=== PATIENT | male | born 1980 | race Caucasian/White ===

== ENCOUNTER 2020-12-16 23:02 | Emergency (ER) | payer OTHER, SELFPAY ==
[2020-12-16 23:08] VITALS: BP 178/103; PULSE 84; RESP 16; O2SAT 98; BMI 26.4
--- NOTE | 2020-12-16 23:13 | ED.GENADULT ---
HPI - General Adult General Chief complaint: General Medical Stated complaint: Swallowed pine-rosendo Time Seen by Provider: 12/16/20 23:13 Source: patient Mode of arrival: ambulatory Limitations: no limitations History of Present Illness HPI narrative: Patient accidentally ingested 1 sip of pine rosendo from a mislabeled bottle immediately patient vomited 3 times complaining of mild sore throat denies any shortness of breath no significant abdominal pain Related Data Allergies Allergy/AdvReac Type Severity Reaction Status Date / Time No Known Allergies Allergy Unverified 04/04/20 16:40 Review of Systems Review of Systems: Yes all other systems are reviewed and are negative Physical Exam Vital Signs: Vital Signs: Last Vital Signs Pulse 84 12/16/20 23:08 Resp 16 12/16/20 23:08 BP 178/103 H 12/16/20 23:08 Pulse Ox 98 12/16/20 23:08 Body Mass Index 26.4 Appearance: Alert. Oriented X3. No acute distress. Eyes: PERRLA, No Nystagmus ENT: Pharynx normal. Oral Mucosa moist Neck: Normal inspection. Neck supple. CVS: Normal heart rate and rhythm. Pulses normal. Respiratory: No respiratory distress. Equal air entry bilateral, no wheezing/rales/rhonchi Abdomen: Soft and nontender. Bowel sounds are present, no mass palpable, no CVA tenderness Skin: Skin warm and dry. Normal skin color. Normal skin turgor. Extremities: No lower extremity edema. No calf tenderness Neuro: Oriented X 3. No motor deficit. No sensory deficit Medical Decision Making MDM Narrative Medical decision making narrative: Patient with non toxic chemical ingestion will give Maalox for symptomatic treatment for the acute gastritis discharge Discharge Plan Discharge Clinical Impression: Ingestion of nontoxic substance Qualifiers: Encounter type: initial encounter Injury intent: accidental or unintentional Qualified Code(s): T65.91XA - Toxic effect of unspecified substance, accidental (unintentional), initial encounter Patient Disposition: Home, Self-Care Instructions: Gastritis (ED) Additional Instructions: You have gastritis from nontoxic chemical ingestion. Drink plenty of fluids Take Tums or Mylanta for gastritis
[2020-12-16] MEDS: Magnesium Hydrox/Alum Hydrox 30 ML ORAL.SUSP PO (23:23)
== END 2020-12-16 23:45 | disposition home or self-care (01) ==
LOC: HO.ED 23:37
PROVIDERS: Emergency Provider Internal Medicine
DX: T65.891A Toxic effect of other specified substances, accidental (unintentional), initial encounter (principal); K29.00 Acute gastritis without bleeding; Y92.019 Unspecified place in single-family (private) house as the place of occurrence of the external cause
CPT/HCPCS: 99283; 99284

== ENCOUNTER 2022-03-21 21:00 | Emergency (ER) | payer OTHER, SELFPAY ==
--- NOTE | ~2022-03-21 | XR_ITS ---
EXAMINATION: XR KNEE, LEFT CLINICAL INFORMATION: Pain. COMPARISON: None TECHNIQUE: Four views of the left knee. FINDINGS: Bones and soft tissues are normal. No fracture or joint effusion. Alignment is anatomic. Joint spaces are well maintained. No abnormal soft tissue calcification. XR/XR knee LT 3V IMPRESSION: Normal left knee.
[2022-03-21 22:53] VITALS: BP 159/118; PULSE 72; RESP 18; TEMP 36.8; O2SAT 96; BMI 27.4
--- NOTE | 2022-03-22 01:48 | ED.EXTPRO ---
HPI - Extremity Problem General Chief complaint: Extremity Problem Stated complaint: L knee pain when it bends. approx 1 week Time Seen by Provider: 03/22/22 01:35 Source: patient Mode of arrival: ambulatory Limitations: no limitations History of Present Illness HPI Narrative: 41-year-old male who presents emergency department for evaluation of left knee pain. The patient does not recall any specific injury to his right knee. 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 He states that over the past week and a notice that if he bends and flex his right knee has pain along the medial aspect. He states the pain is a sharp pain which is worse if he presses on the medial aspect of his knee. He states he has had no difficulty standing or walking. He has no difficulty pivoting. He denied any symptoms such as fever, chills, fatigue. He has not noticed any redness or swelling of his knee. MD Complaint: extremity pain Onset (ago): week(s) (1) Pain Consistency: constant Location: left Severity scale (1-10): 3 Quality: aching Radiation: none Relieving factors: nothing Exacerbating factors: other ( Flexing left knee) Related Data Allergies Allergy/AdvReac Type Severity Reaction Status Date / Time No Known Allergies Allergy Unverified 04/04/20 16:40 Review of Systems Review of Systems: Yes all other systems are reviewed and are negative [facility] Past Medical History [facility] Narrative: past medical history: None past surgical history: None. Social history: He denies tobacco, alcohol and drug use. 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 Social History Social History Advance Directives: No Advance Directives Information Provided: No Physical Exam Vital Signs: Vital Signs: Last Vital Signs Temp 98.2 F 03/21/22 22:53 Pulse 72 03/21/22 22:53 Resp 18 03/21/22 22:53 BP 159/118 H 03/21/22 22:53 Pulse Ox 96 03/21/22 22:53 O2 Del Method 03/21/22 22:53 BMI result Body Mass Index 27.4 Const: Other: Very pleasant and cooperative male patient, he does not appear to be in distress, answers all questions appropriately HEENT: Head: Yes normal to inspection Extrem: Other: the patient's knees there appear to be symmetric, the patient has pain with flexion of the left knee and pain with palpation over the medial collateral ligament and over the medial meniscus area. There is no joint effusion. The patient has no increased pain with medial lateral flexion, there is negative anterior-posterior drawer sign. 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 Patient had no systemic symptoms. Patient's left knee examination revealed no joint effusion, no erythema. He does have pain with flexion of the left kne and pain with palpation of the left medial collateral ligament as well as over the a left meniscal area. X-rays of the left knee revealed no acute findings. The patient's presentation is consistent with left knee sprain I did discuss this with him. He was advised to take Tylenol ibuprofen for pain. He was given an ice pack and Rinku wrap as well. He was discharged with printed and verbal instructions. Discharge Plan Discharge Clinical Impression: Left knee sprain Patient Disposition: Home, Self-Care Instructions: Knee Sprain (ED) Additional Instructions: Your x-ray gurney was normal, there is no arthritis or bone abnormality noted. Your exam is consistent with a sprain of the left knee medial collateral ligament or injury to the medial meniscus. Apply ice for 15 minutes 4 times a day for the next 2-3 days and that should help reduce the pain. Take ibuprofen 200 mg pills, 3 pills every 6 hours as needed for pain. Take Tylenol (acetaminophen) 500 mg pills, 2 pills every 4 to 6 hours as needed for pain. Follow-up with your doctor in 2 days. Please return to the emergency department if your symptoms get worse or if you develop any symptoms that are concerning to you.
[2022-03-22 01:54] VITALS: BP 154/70; PULSE 68; RESP 16; TEMP 36.1; O2SAT 98
--- NOTE | 2022-03-22 02:24 | PC.NURSE ---
assumed care of pt at 0224 for discharge
== END 2022-03-22 02:28 | disposition home or self-care (01) ==
PROVIDERS: Emergency Provider Emergency Medicine Emergency Medical Services
DX: S83.92XA Sprain of unspecified site of left knee, initial encounter (principal); X58.XXXA Exposure to other specified factors, initial encounter; Y93.9 Activity, unspecified; Y92.9 Unspecified place or not applicable; Y99.9 Unspecified external cause status
CPT/HCPCS: 73562; 99283

== ENCOUNTER → 2024-11-20 12:41 | Outpatient (BNVA) | payer OTHER, SELFPAY | PROVIDERS: Visit Provider Physician Assistant Medical | DX: S50.872A Other superficial bite of left forearm, initial encounter (principal); W50.3XXA Accidental bite by another person, initial encounter; Z23 Encounter for immunization; Z02.79 Encounter for issue of other medical certificate | CPT/HCPCS: 90715; 99202 ==

== ENCOUNTER 2025-03-12 10:53 | Emergency (ER) | payer SELFPAY ==
--- NOTE | ~2025-03-12 | XR_ITS ---
EXAMINATION: XR CHEST CLINICAL INFORMATION: HTN COMPARISON: None available. TECHNIQUE: 2 views of the chest were obtained. FINDINGS: The cardiac, hilar, and mediastinal contours are normal. The lungs are clear bilaterally. There is no pneumothorax or pleural effusion. There is no focal osseous or soft tissue abnormality. XR/XR chest 2V IMPRESSION: Normal chest. Electronically signed by: Sandeep Becker MD 03/12/2025 12:10 PM EDT
[2025-03-12 11:00] VITALS: BP 191/100; PULSE 76; RESP 19; TEMP 36.7; O2SAT 97; BMI 27.4
--- NOTE | 2025-03-12 11:00 | ED.GENADULT ---
HPI - General Adult General Chief complaint: General Medical Stated complaint: elev BP sent by [facility] Time Seen by Provider: 03/12/25 11:10 Source: patient Mode of arrival: ambulatory Limitations: no limitations History of Present Illness ED Provider: [facility] narrative: Patient went to see his dentist for a root canal was sent here because the blood pressure was 177/100, patient states that he was nervous, had sexual intercourse with his , did not eat or drink and so that can explain his blood pressure however he also endorsed that he has not seen a physician in 2 years, he does not drink does not smoke denies drug use, he has had no other symptoms no headaches no vision changes no weakness in upper or lower extremities no abdominal pain no chest pain, no difficulty urinating. Related Data Previous Rx's ?Medication ?Instructions ?Recorded hydrochlorothiazide 12.5 mg capsule 12.5 mg PO DAILY #60 caps 03/12/25 Allergies Allergy/AdvReac Type Severity Reaction Status Date / Time No Known Allergies Allergy Verified 03/12/25 11:02 Review of Systems Constitutional: Constitutional: Reports as per [facility] Social History Social History Smoked in Last 30 Days: No Use of substances other than those prescribed or required for medical reasons: No Advance Directives: No Advance Directives Information Provided: Yes Do you have a plan to hurt others: No Plan Physical Exam ED Vital Signs: Vital Signs - 24 hr 03/12/25 11:00 03/12/25 11:42 Temperature 98.1 F 97.9 F Pulse Rate 76 85 Respiratory Rate 19 14 Blood Pressure 191/100 H 173/107 H Pulse Oximetry 97 97 Oxygen Delivery Method Room Air Room Air BMI result Body Mass Index 27.4 Const Other: Gen: ?Overall well-appearing patient CV: RRR, no obvious murmurs appreciated Resp: ?No wheezing rales rhonchi no stridor moving air well Abd: ?Bowel sounds are present, no tenderness no rebound no rigidity MSK: FROM, strength 5/5 all extremities Skin: Warm, dry, intact, Neuro: ?Alert and oriented x3, moving upper and lower extremities symmetrically, no obvious facial asymmetry noted Course Course Course Narrative: Rapid medical examination performed in triage by Mi Dorsey PA-C. Patient is a 44 year old assigned male at presenting to the emergency department with concerns of elevated blood pressure. Patient states he was at the dentist to get his root canal done when they told him his blood pressure was high. Patient denies any headache, blurry vision, double vision, loss of vision, or any other symptoms at this time. Detailed physical exam and review of systems are deferred to the guide changer. EKG, labs, imaging ordered. Patient placed back in the waiting room pending room availability and results. Medical Decision Making Medical Decision Making MDM Narrative: Based on patient's diastolic pressure I suspect he has longstanding arterial hypotension, he also has some LVH changes on ECG without any other changes to suspect underlying ACS, he has no other symptoms, I spoke to the patient quite a bit regarding salt intake, exercise, he does not smoke, I plan to start him on medication for his high blood pressure and then follow up with his PCP within the next 4-6 weeks, he has not really monitored his blood pressure so I suspect he is chronically hypertensive 12:40 I discussed with the patient his blood work, paused discussing elevated bilirubin and AST ALT, he has no abdominal pain, continues to have benign abdominal exam, I suspect this is likely due to cholestatic liver disease, so my there are other differential for this inherited disorders bilirubin, nothing to suspect cholecystitis, there was no evidence for hemolysis, he may need further workup and imaging on outpatient basis, he is aware of that. See my discharge instructions and he told me he does not drink alcohol I did confirm that again. Differential Diagnosis Differential Diagnoses: The differential diagnosis associated with the presentation includes (End-organ damage from chronic hypotension including ACS, LIZZIE, subarachnoid hemorrhage, stroke, otherwise poorly controlled hypotension, asymptomatic hypotension) Admission/Observation Consideration of admission/observation: Escalation of care including admission/observation considered (We will initiate treatment on outpatient basis, workup without any evidence for end-organ damage) 2022 Emergency Medicine Coding Guide from [email or web address] on 03/12/2025 All calculations should be rechecked by clinician prior to use RESULT SUMMARY: 4 Estimated Level of Service Problems: Moderate (4) Risk: Moderate (4) Data: Extensive (5) NARRATIVE MDM: This patient's problem complexity is Moderate as patient: with chronic illness(es) with exacerbation/progression/side effects of treatment. This patient's risk is Moderate due to: overall presentation requiring evaluation for a potentially Moderate-risk process. This patient's data complexity is Extensive due to: -multiple tests ordered/reviewed -external notes reviewed -independent interpretation of imaging or EKG INPUTS: Number and Complexity ?> 3 = 4: chronic illness with exacerbation (c) Risk level ?> 3 = Moderate Tests ordered ?> 2 = 2 Tests results reviewed (excluding labs) ?> 2 = 2 Prior external notes reviewed ?> 1 = 1 Assessment requiring and independent historian ?> 0 = No Independent interpretation of tests ?> 1 = Yes Discussed management/test interpretation w/external professional ?> 0 = No Lab Data MDM Lab Attestation statement: I reviewed the patient's lab results. 03/12/25 11:53 03/12/25 11:53 Labs: Lab Results 03/12/25 Range/Units 11:53 WBC 7.0 (4.8-10.8) X10*3/uL RBC 5.58 (4.60-5.80) X10*6/uL Hgb 15.8 (14.0-18.0) g/dl Hct 45.2 (42.0-52.0) % MCV 81.0 (80.0-98.0) fL MCH 28.3 (27.0-33.0) pg MCHC 35.0 (31.0-36.0) g/dl RDW 11.9 (11.0-16.0) % Plt Count 273 (160-400) X10*3/uL MPV 9.4 (9.4-12.4) fL Immature Gran % (Auto) 1.1 H (0.0-0.4) % Neut % (Auto) 66.8 (45-73) % Lymph % (Auto) 21.5 (20-40) % Benzie % (Auto) 8.3 (2-11) % Eos % (Auto) 1.7 (0-4) % Baso % (Auto) 0.6 (0-2) % Lymph # (Auto) 1.5 (1.2-4.9) X10*3/uL Benzie # (Auto) 0.6 (0.1-1.2) X10*3/uL Eos # (Auto) 0.1 (0.0-0.4) X10*3/uL Baso # (Auto) 0.0 (0.0-0.2) X10*3/uL Abs Immat Gran (auto) 0.08 H (0.00-0.03) X10*3/uL Absolute Neuts (auto) 4.7 (2.0-8.3) x10*3/uL Absolute Nucleated RBC 0.000 (0.0-0.012) X10*3/uL Nucleated RBC % (auto) 0.0 (0.0-0.2) /100WBC Sodium 140 (135-145) mmol/L Potassium 3.8 (3.3-5.1) mmol/L Chloride 107 (96-108) mmol/L Carbon Dioxide 27 (22-29) mmol/L Anion Gap 10 L (12-20) BUN 13 (9-16) mg/dL Creatinine 0.87 (0.5-1.4) mg/dL Estim Creat Clear Calc 105.9 Estimated GFR > 60 Random Glucose 127 H (60-115) mg/dL Calcium 9.1 (8.4-10.2) mg/dL Total Bilirubin 2.1 H (0.0-1.0) mg/dL AST 56 H (5-37) U/L ALT 84 H (0-40) U/L Alkaline Phosphatase 108 (39-117) U/L Troponin I High Sens < 2.7 (<3.5-35.0) ng/L Total Protein 7.3 (6.5-8.0) g/dL Albumin 4.2 (3.5-5.0) g/dL Independent Interpretation I performed an independent interpretation of an: EKG (84 beats per minute, otherwise normal ECG without dysrhythmia, AV meche blocks or ST-T changes to suspect underlying ACS, my independent interpretation, he does have LVH) and Plain X-Ray (My independent chest xray interpretation: Lungs: Lungs are clear bilaterally without evidence of focal consolidation, pleural effusion, or pneumothorax. Cardiac silhouette is unremarkable, no obvious mediastinal widening, no obvious bony abnormalities such as fractures. Impression: Normal chest X-r) Radiology Impression Discussion of test interpretation with radiology: I have reviewed the radiologist's reading. (Negative chest) Independent Historian Clinical information obtained from an independent historian. History obtained from or confirmed by: Other (Dental off his documents) External Record Review External record reviewed: Office record Prescription Management I considered prescription management with: Other (Hypertensive medication) Chronic Conditions Patient?s care impacted by: Hypertension Discharge Plan Discharge Clinical Impression: Asymptomatic hypertension, Elevated LFTs Patient Disposition: Home, Self-Care Instructions: Low-Sodium Diet (ED), Hypertension (ED) Additional Instructions: Please take prescribed medication once daily, you can take it in the morning with food, we discussed salt intake, 4 or 5 times a week get yoour 10,000 steps in , and most importantly I would like you to follow up with the PCP to make sure that you have your blood pressure under control, in the meantime you can get a blood pressure cuff of [employer] or pharmacy and measure it 3 times a week, and then righted down you do not have to worry about any specific numbers just keep a diary for your PCP , EKG reassuring, CXR as well, cardiac enzymes unremarkable, you had elevation of total bilirubin and AST ALT, these are liver enzymes, I suspect in your case as you are not having any other evidence for anemia or pain this is likely due to cholestatic liver disease or fatty liver, so I do recommend that you have cholesterol workup on outpatient basis so that is another reason to see her PCP, also when you are going to be 45 you are due for a colonoscopy so the more reason that most important thing after today's visit is to take your high blood pressure medications, make sure you have a PCP follow up, if you have any belly pain, fevers chills nausea or vomiting and he had concerns come back to the ER. Prescriptions: New hydrochlorothiazide 12.5 mg capsule 12.5 mg PO DAILY Qty: 60 0RF Print Language: [place]
--- NOTE | 2025-03-12 11:01 | ECG_ITS ---
Test Reason : HYPERTENSIVE Blood Pressure : */* mmHG Vent. Rate : 84 BPM Atrial Rate : 84 BPM P-R Int : 168 ms QRS Dur : 108 ms QT Int : 376 ms P-R-T Axes : 65 65 25 degrees QTcB Int : 444 ms Normal sinus rhythm with sinus arrhythmia Possible Left atrial enlargement Minimal voltage criteria for LVH, may be normal variant ( Antoni product ) Borderline ECG No previous ECGs available Referred By: Mi Dorsey Electronically Signed By: JHONATHAN HA
[2025-03-12 11:42] VITALS: BP 173/107; PULSE 85; RESP 14; TEMP 36.6; O2SAT 97
[2025-03-12 11:59] LABS: MANUAL DIFF FLAG NO
[2025-03-12 12:04] LABS: Hematocrit 45.2 % (42.0-52.0); Hemoglobin 15.8 g/dl (14.0-18.0); Imm Gran Abs Auto 0.08 X10*3/uL (0.00-0.03); Imm Gran Pct Auto 1.1 % (0.0-0.4); Lymphocytes Absolute Auto 1.5 X10*3/uL (1.2-4.9); Mean Corpuscular HGB Conc 35.0 g/dl (31.0-36.0); Mean Corpuscular Hemoglobin 28.3 pg (27.0-33.0); Mean Corpuscular Volume 81.0 fL (80.0-98.0); NRBC Abs Auto 0.000 X10*3/uL (0.0-0.012); NRBC Pct Auto 0.0 /100WBC (0.0-0.2); Platelet Count 273 X10*3/uL (160-400); Red Blood Count 5.58 X10*6/uL (4.60-5.80); White Blood Count 7.0 X10*3/uL (4.8-10.8)
[2025-03-12 12:26] LABS: Alanine Aminotransferase 84 U/L (0-40); Albumin Level 4.2 g/dL (3.5-5.0); Alkaline Phosphatase 108 U/L (39-117); Anion Gap 10 (12-20); Aspartate Amino Transferase 56 U/L (5-37); Blood Urea Nitrogen 13 mg/dL (9-16); Calcium 9.1 mg/dL (8.4-10.2); Carbon Dioxide 27 mmol/L (22-29); Chloride 107 mmol/L (96-108); Creatinine Clr Calc Pharmacy 105.9; Estimated Glomerular Filt Rate > 60; Potassium 3.8 mmol/L (3.3-5.1); Sodium 140 mmol/L (135-145); Total Protein 7.3 g/dL (6.5-8.0)
[2025-03-12 12:29] LABS: Troponin-I High Sensitivity < 2.7 ng/L (<3.5-35.0)
[2025-03-12 13:20] VITALS: BP 173/107; PULSE 85; RESP 14; TEMP 36.6; O2SAT 97
[2025-03-12 13:24] VITALS: BP 159/90; PULSE 85; RESP 14; TEMP 36.6; O2SAT 97
== END 2025-03-12 13:34 | disposition home or self-care (01) ==
PROVIDERS: Physician Assistant Medical; Emergency Provider Emergency Medicine
DX: R79.89 Other specified abnormal findings of blood chemistry (principal); I49.8 Other specified cardiac arrhythmias; I10 Essential (primary) hypertension; Z79.899 Other long term (current) drug therapy
CPT/HCPCS: 36415; 71046; 80053; 84484; 85025; 93005; 99283; 99284

== ENCOUNTER → 2025-03-12 11:01 | Outpatient (BNV) | payer SELFPAY | PROVIDERS: Emergency Provider Emergency Medicine; Visit Provider Internal Medicine | DX: I49.9 Cardiac arrhythmia, unspecified (principal) | CPT/HCPCS: 93010 ==

== ENCOUNTER → 2025-03-12 11:01 | Outpatient (BNV) | payer OTHER, SELFPAY | PROVIDERS: Emergency Provider Emergency Medicine; Visit Provider Radiology Diagnostic Radiology | DX: I10 Essential (primary) hypertension (principal) | CPT/HCPCS: 71046 ==